=== PATIENT | male | born 1970 | race African-American/Black ===

== ENCOUNTER 2021-01-23 10:00 | Emergency (ER) | payer MEDICAID ==
[~2021-01-23] VITALS: Ht 175.3 cm; Wt 90.9 kg
[2021-01-23] MEDS ORDERED: KETOROLAC TROMETHAMINE 30 MG/ML VIAL IM ONE (13:00)
[2021-01-23 13:42] VITALS: BP 139/79
[2021-01-23] MEDS ORDERED: KETOROLAC TROMETHAMINE 30 MG/ML VIAL ONE (13:51)
== END 2021-01-23 14:00 | disposition home or self-care (01) ==
LOC: EDBD → EMS 10:00
DX: R51.9 Headache, unspecified (principal)
CPT/HCPCS: 70450; 99284; J1885

== ENCOUNTER 2021-01-24 00:33 | Emergency (ER) | payer MEDICAID ==
[~2021-01-24] VITALS: Ht 175.3 cm; Wt 90.9 kg
[2021-01-24] MEDS ORDERED: KETOROLAC TROMETHAMINE 30 MG/ML VIAL IM ONE (02:00)
[2021-01-24 02:15] VITALS: BP 142/80
== END 2021-01-24 02:30 | disposition home or self-care (01) ==
LOC: EMS 00:34 → EDBD 00:34 → EMS 02:30
DX: S46.811A Strain of other muscles, fascia and tendons at shoulder and upper arm level, right arm, initial encounter (principal); X58.XXXA Exposure to other specified factors, initial encounter; Y93.89 Activity, other specified; Y92.89 Other specified places as the place of occurrence of the external cause; Y99.8 Other external cause status
CPT/HCPCS: 96372; 99283; J1885